=== PATIENT | male | born 1965 | race Caucasian/White ===

== ENCOUNTER 2016-09-23 20:53 | Inpatient (IN) | payer OTHER ==
[2016-09-23 21:37] LABS: Basophils # (A) 0.2 k/uL (0-0.2); Basophils % (A) 1 %; CH 31.8; CHCM 36.8; Eosinophils # (A) 0.3 k/uL (0-0.7); Eosinophils % (A) 3 %; HDW 2.63; Luc # (Auto) 0.16; Luc % (Auto) 2; Lymphocytes # (A) 2.6 k/uL (1.0-4.8); Lymphocytes % (A) 24 %; MCH 31.2 pg (25.0-35.0); MCV 86.8 fL (80.0-100.0); Mean Platelet Volume 7.1; Monocytes # (A) 0.8 k/uL (0-1.0); Monocytes % (A) 8 %; Neutrophils # (A) 6.9 k/uL (1.3-7.7); Neutrophils % (A) 63 %; RBC 4.49 m/uL (4.30-5.90); RDW 12.6 % (11.5-15.5); WBC (Perox) 11.62
[2016-09-23 21:53] LABS: ALT 39 U/L (21-72); AST 26 U/L (17-59); Alkaline Phosphatase 76 U/L (38-126); Anion Gap 11 mmol/L; Blood Urea Nitrogen 8 mg/dL (9-20); Calcium 8.9 mg/dL (8.4-10.2); Carbon Dioxide 25 mmol/L (22-30); Chloride 98 mmol/L (98-107); Glucose 118 mg/dL (74-99); Non-African American GFR(MDRD) >60 (>60 ml/min/1.73 sqM); Potassium 4.2 mmol/L (3.5-5.1); Sodium 134 mmol/L (137-145); Total Protein 6.6 g/dL (6.3-8.2)
[2016-09-23] MEDS ORDERED: NALOXONE 0.4 MG/ML 1 ML VIAL IV PRN (22:25)
[2016-09-23] MEDS ORDERED: ONDANSETRON 4 MG/2 ML VIAL IVP PRN (22:25)
[2016-09-23] MEDS ORDERED: TEMAZEPAM 15 MG CAP PO PRN (22:25)
--- NOTE | 2016-09-23 22:25 | ED ---
General Adult HPI - General Chief complaint: Abdominal Pain Stated complaint: ABD PAIN Time Seen by Provider: 09/23/16 20:55 Source: patient, EMS Mode of arrival: EMS Limitations: no limitations - History of Present Illness Initial comments: Patient presents to the [facility] with cellulitis of the anterior abdominal wall. He also has a tract involving a history of hernia repair. He was evaluated at another facility. They were concern for infection of the mesh. Patient has no fever or chills. He has no chest pain. He has pain over the inflamed area, however does not have belly pain otherwise. He has no blood in the stool. He has no black or tarry stool. He has taken no medication for this. - Related Data Home Medications Medication Instructions Recorded Confirmed Aspirin [Adult Low Dose Aspirin EC] 81 mg PO DAILY 09/23/16 09/23/16 Atorvastatin [Lipitor] 10 mg PO DAILY 09/23/16 09/23/16 Fexofenadine HCl [Katelin Allergy] 180 mg PO DAILY 09/23/16 09/23/16 Losartan-Hctz 50-12.5 mg [Hyzaar 1 tab PO DAILY 09/23/16 09/23/16 50-12.5] Sulfamethox-Tmp 800-160Mg [Bactrim 1 tab PO Q12HR 09/23/16 09/23/16 DS 800-160 mg] metFORMIN HCL [Glucophage] 500 mg PO DAILY 09/23/16 09/23/16 traMADol HCl [Ultram] 50 mg PO BID 09/23/16 09/23/16 Allergies Allergy/AdvReac Type Severity Reaction Status Date / Time No Known Allergies Allergy Verified 09/23/16 21:11 Review of Systems ROS Statement: Those systems with pertinent positive or pertinent negative responses have been documented in the HPI. ROS Other: All systems not noted in ROS Statement are negative. Past Medical History Past Medical History: Diabetes Mellitus, Hyperlipidemia, Hypertension Additional Past Medical History / Comment(s): chronic back pain History of Any Multi-Drug Resistant Organisms: None Reported Past Surgical History: Appendectomy, Cholecystectomy, Hernia Repair Past Psychological History: No Psychological Hx Reported Smoking Status: Never smoker Past Alcohol Use History: None Reported Past Drug Use History: None Reported General Exam Limitations: no limitations General appearance: alert, in no apparent distress Head exam: Present: atraumatic, normocephalic, normal inspection Eye exam: Present: normal appearance, PERRL, EOMI. Absent: scleral icterus, conjunctival injection, periorbital swelling ENT exam: Present: normal exam, mucous membranes moist Neck exam: Present: normal inspection. Absent: tenderness, meningismus, lymphadenopathy Respiratory exam: Present: normal lung sounds bilaterally. Absent: respiratory distress, wheezes, rales, rhonchi, stridor Cardiovascular Exam: Present: regular rate, normal rhythm, normal heart sounds. Absent: systolic murmur, diastolic murmur, rubs, gallop, clicks GI/Abdominal exam: Present: soft, normal bowel sounds. Absent: distended, tenderness, guarding, rebound, rigid Extremities exam: Present: normal inspection, full ROM, normal capillary refill. Absent: tenderness, pedal edema, joint swelling, calf tenderness Back exam: Present: normal inspection Neurological exam: Present: alert, oriented X3, CN II-XII intact Psychiatric exam: Present: normal affect, normal mood Skin exam: Present: warm, dry, other (Cellulitis of the anterior abdominal wall with purulent discharge). Absent: rash Course Vital Signs 09/23/16 20:54 Temperature 97.2 F L Pulse Rate 77 Respiratory 18 Rate Blood Pressure 120/71 O2 Sat by Pulse 98 Oximetry Medical Decision Making - Medical Decision Making Patient presents with cellulitis and abscess of the anterior abdominal wall. He has no white count. He is started on antibiotics. I have placed a consultation to surgery. He will be admitted to the hospital. - Lab Data Result diagrams: 09/23/16 21:24 09/23/16 21:24 Lab Results 09/23/16 09/23/16 Range/Units 21:24 21:24 WBC 11.0 H (3.8-10.6) k/uL RBC 4.49 (4.30-5.90) m/uL Hgb 14.0 (13.0-17.5) gm/dL Hct 39.0 (39.0-53.0) % MCV 86.8 (80.0-100.0) fL MCH 31.2 (25.0-35.0) pg MCHC 36.0 (31.0-37.0) g/dL RDW 12.6 (11.5-15.5) % Plt Count 266 (150-450) k/uL Neutrophils % 63 % Lymphocytes % 24 % Monocytes % 8 % Eosinophils % 3 % Basophils % 1 % Neutrophils # 6.9 (1.3-7.7) k/uL Lymphocytes # 2.6 (1.0-4.8) k/uL Monocytes # 0.8 (0-1.0) k/uL Eosinophils # 0.3 (0-0.7) k/uL Basophils # 0.2 (0-0.2) k/uL Sodium 134 L (137-145) mmol/L Potassium 4.2 (3.5-5.1) mmol/L Chloride 98 (98-107) mmol/L Carbon Dioxide 25 (22-30) mmol/L Anion Gap 11 mmol/L BUN 8 L (9-20) mg/dL Creatinine 0.70 (0.66-1.25) mg/dL Est GFR (MDRD) Af Amer >60 (>60 ml/min/1.73 sqM) Est GFR (MDRD) Non-Af >60 (>60 ml/min/1.73 sqM) Glucose 118 H (74-99) mg/dL Calcium 8.9 (8.4-10.2) mg/dL Total Bilirubin 1.0 (0.2-1.3) mg/dL AST 26 (17-59) U/L ALT 39 (21-72) U/L Alkaline Phosphatase 76 (38-126) U/L Total Protein 6.6 (6.3-8.2) g/dL Albumin 4.0 (3.5-5.0) g/dL Disposition Clinical Impression: Cellulitis Disposition: ADMITTED IP TO THIS HOSP Condition: Fair Time of Disposition: 22:24
[2016-09-23] MEDS: MORPHINE SULFATE 4 MG/ML SYRINGE IV PRN (23:58)
[2016-09-24] MEDS: MORPHINE SULFATE 4 MG/ML SYRINGE IV PRN ×2 (05:58→21:06)
[2016-09-24] MEDS: ASPIRIN 81 MG CHEW PO SCH (08:16)
[2016-09-24] MEDS: LOSARTAN-HCTZ 50-12.5 MG 1 EACH TAB PO SCH (08:16)
[2016-09-24] MEDS: metFORMIN 500 MG TAB PO SCH (08:16)
[2016-09-24] MEDS: ATORVASTATIN 10 MG TAB PO SCH (08:16)
[2016-09-24] MEDS ORDERED: FAMOTIDINE 20 MG TAB PO SCH (09:00)
[2016-09-24] MEDS ORDERED: IV VANCOMYCIN PER PHARMACY 1 EACH MISC MISCELLANE PRN ×3 (11:48→15:13)
--- NOTE | 2016-09-24 13:18 | P.GSCN ---
History of Present Illness Consult date: 09/24/16 Reason for Consult: Abdominal wall abscess, questionable abscess at prior left inguinal hernia repair site History of present illness: Patient is a 51-year-old white male with a history approximately 25 years ago of a left inguinal hernia repair. The patient states that several days ago he developed a swelling on his anterior abdominal wall. He had this in the past and this was treated with antibiotics with resolution. However this time he never really developed pain at the abdominal wall side but also in the left groin. He was seen at [place] for a CAT scan was performed which revealed an abscess on the anterior abdominal wall with extension down to the area of the left groin at the site of prior hernia repair. The patient denies fever or chills. The patient denies nausea or vomiting. The patient states he has been eating well. The patient denies any swelling in his left groin, although he does have pain at that site. Past surgical history: 1. Left inguinal hernia repair 2 2. Cholecystectomy 3. Appendectomy Past medical history: Hypertension Diabetes ALLERGIES: Negative Social history: Smoking: Negative Alcohol: Negative Marijuana: Negative Review of systems: HEENT negative Lungs: Negative Heart: Negative GI: Negative : Left inguinal hernia 2 Kidney stones Review of Systems - Constitutional Reports as per HPI - EENT Ears, nose, mouth and throat: Reports as per HPI - Cardiovascular Reports as per HPI - Respiratory Reports as per HPI - Gastrointestinal Reports as per HPI - Genitourinary Genitourinary Comment(s): History of kidney stones Reports as per HPI - Integumentary Reports as per HPI Past Medical History Past Medical History: Diabetes Mellitus, Hyperlipidemia, Hypertension Additional Past Medical History / Comment(s): chronic back pain History of Any Multi-Drug Resistant Organisms: None Reported Past Surgical History: Appendectomy, Cholecystectomy, Hernia Repair Past Anesthesia/Blood Transfusion Reactions: No Reported Reaction Past Psychological History: No Psychological Hx Reported Smoking Status: Never smoker Past Alcohol Use History: None Reported Past Drug Use History: None Reported - Past Family History Mother Family Medical History: Cancer Medications and Allergies Home Medications Medication Instructions Recorded Confirmed Type Aspirin [Adult Low Dose Aspirin EC] 81 mg PO DAILY 09/23/16 09/23/16 History Atorvastatin [Lipitor] 10 mg PO DAILY 09/23/16 09/23/16 History Fexofenadine HCl [Katelin Allergy] 180 mg PO DAILY 09/23/16 09/23/16 History Losartan-Hctz 50-12.5 mg [Hyzaar 1 tab PO DAILY 09/23/16 09/23/16 History 50-12.5] Sulfamethox-Tmp 800-160Mg [Bactrim 1 tab PO Q12HR 09/23/16 09/23/16 History DS 800-160 mg] metFORMIN HCL [Glucophage] 500 mg PO DAILY 09/23/16 09/23/16 History traMADol HCl [Ultram] 50 mg PO BID 09/23/16 09/23/16 History Allergies Allergy/AdvReac Type Severity Reaction Status Date / Time No Known Allergies Allergy Verified 09/23/16 21:11 Surgical - Exam Vital Signs Temp Pulse Resp BP Pulse Ox 97.2 F L 77 18 120/71 98 09/23/16 20:54 09/23/16 20:54 09/23/16 20:54 09/23/16 20:54 09/23/16 20:54 - General well developed, moderate distress - Eyes normal ocular movement - ENT Edentulous anterior teeth normal pinna, normal nares - Neck no masses, trachea midline, no lymphadectomy, no venous distension - Respiratory normal expansion, normal respiratory effort, clear to auscultation - Cardiovascular Rhythm: regular Heart Sounds: normal: S1, S2 - Abdomen Abscess left lower quadrant approximately 4 cm x 4 cm Incision prior left inguinal hernia repair tender to palpation No evidence of any groin hernias appreciated Abdomen: soft Hernia: none - Genitourinary testicles present - Integumentary Left lower quadrant anterior abdominal wall positive abscess Well-healed scar from prior left inguinal hernia repair approximately 25 years ago with some tenderness at this site - Psychiatric oriented to time, oriented to person, oriented to place, speech is normal Results Computed tomography scan from some dusky reviewed with radiologist here Anterior abdominal wall abscess Fluid collection around questionable mesh in the left groin area which may be contiguous with the abscess on the intra-abdominal wall No evidence of any bowel in the abscessed areas and no evidence of recurrence of the hernia - Labs 09/23/16 21:24 09/23/16 21:24 - Imaging CT scan - abdomen: report reviewed, image reviewed CT scan - pelvis: report reviewed, image reviewed (CT findings revealing intra- abdominal wall abscess as well as possible extension of abscess to the area of the left groin prior hernia repair) Assessment and Plan Plan: Impression/plan: 1. 51-year-old gentleman with a intra-abdominal wall abscess possible abscess extending to the area of a prior hernia repair 2. Diabetes 3. Hypertension Plan: 1. Incision and drainage of the area of abscess possible removal of prior mesh 2. Will most likely require debridement with open wound and recurrent dressing changes; if it is necessary to remove the mesh patient may need to have a repeat hernia repair after the infection is resolved
[2016-09-24] MEDS ORDERED: HEPARIN SODIUM,PORCINE 5,000 UNIT/ML 1 ML VIAL SQ ONE (13:30)
[2016-09-24 13:49] LABS: Glucose,Whole Blood 93 mg/dL (75-99)
[2016-09-24] MEDS ORDERED: DEXAMETHASONE SOD PHOSPHATE 10 MG/ML 1 ML VIAL IV ONE (14:02)
[2016-09-24] MEDS ORDERED: ONDANSETRON 4 MG/2 ML VIAL IVP ONE (14:02)
[2016-09-24] MEDS ORDERED: MIDAZOLAM 2 MG/2 ML VIAL ONE (14:10)
[2016-09-24] MEDS ORDERED: LIDOCAINE 1% INJ 10MG/ML (20 ML MDV) ONE (14:10)
[2016-09-24] MEDS ORDERED: PROPOFOL 10 MG/ML 20 ML VIAL IV ONE (14:10)
[2016-09-24] MEDS ORDERED: SUCCINYLCHOLINE CHLORIDE 100 MG/5 ML SYR IV ONE (14:10)
[2016-09-24] MEDS ORDERED: ePHEDrine 50 MG/ML 1 ML AMP ONE (14:10)
[2016-09-24] MEDS ORDERED: fentaNYL (PF) 50 MCG/ML 2 ML AMP ONE (14:10)
[2016-09-24] MEDS ORDERED: HYDROmorphone (PF) 1 MG/ML ONE (14:10)
[2016-09-24] MEDS: LACTATED RINGERS 1,000 ML IV SCH ×2 (14:10→14:14)
[2016-09-24] MEDS ORDERED: FAMOTIDINE 20 MG/2 ML VIAL IV PRN (14:11)
--- NOTE | 2016-09-24 14:35 | P.HPIM ---
History of Present Illness H&P Date: 09/24/16 Chief Complaint: Abdominal wound infection This is a 51-year-old male. His primary care physician is Dr. Joe Pepe. He has a past medical history of diabetes mellitus type 2, hyperlipidemia, hypertension, chronic back pain, tobacco chewing. He denies ever being told that he had MRSA. He gives history that he had a left inguinal hernia repair done 15-20 years ago by a physician in [place]. One year later he had to have this redone also by another physician in [place]. He states he has had an open wound to the left groin for the past year that has been draining bloody liquid and soaks his underwear. He states that since Thursday there was a ball in the area and has started popping out and getting bigger and bigger and worsening with increasing pain. He saw Dr. Dave on September 19 and was placed on Bactrim. He states he tried to work on Thursday which she did that on Thursday the pain was so severe he was not able to work. He went to [facility] underwent a CAT scan of the abdomen that revealed an abscess on the anterior abdominal wall with extension down to the area of the left groin at the site of the prior hernia repair. Wound and blood cultures were obtained and sent to [facility]. Patient was transferred to [facility] as a direct admission. He has been started on vancomycin and Zosyn has been added. Consult in place with infectious disease, Dr. Hernandez, and general surgeon, Dr. John Cheema. Review of Systems All systems: negative Constitutional: Denies chills, Denies fever Eyes: denies blurred vision, denies pain Ears, nose, mouth and throat: Denies headache, Denies sore throat Cardiovascular: Denies chest pain, Denies shortness of breath Respiratory: Denies cough Gastrointestinal: Reports abdominal pain, Denies diarrhea, Denies nausea, Denies vomiting Musculoskeletal: Denies myalgias Integumentary: Reports wounds, Denies pruritus, Denies rash Neurological: Denies numbness, Denies weakness Psychiatric: Denies anxiety, Denies depression Endocrine: Denies fatigue, Denies weight change Past Medical History Past Medical History: Diabetes Mellitus, Hyperlipidemia, Hypertension Additional Past Medical History / Comment(s): chronic back pain History of Any Multi-Drug Resistant Organisms: None Reported Past Surgical History: Appendectomy, Cholecystectomy, Hernia Repair Additional Past Surgical History / Comment(s): Left inguinal hernia repair done 15-20 years ago followed one year later by repair of the same area, colonoscopy 10-12 years ago. Past Anesthesia/Blood Transfusion Reactions: No Reported Reaction Past Psychological History: No Psychological Hx Reported Smoking Status: Never smoker Past Alcohol Use History: None Reported Additional Past Alcohol Use History / Comment(s): Patient is a lifelong nonsmoker. He denies any medical marijuana, marijuana, street drug use. He does chew tobacco. He denies any alcohol use. He lives at home with his and has 2 dogs in the home. He denies any service. 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 Past Drug Use History: None Reported - Past Family History Mother Family Medical History: Cancer Additional Family Medical History / Comment(s): Mother at age 32 from ovarian cancer. Father Additional Family Medical History / Comment(s): Father at age 73 from stomach cancer. Sister(s) Additional Family Medical History / Comment(s): He has 5 sisters and 2 brothers with no major medical problems. He has 2 children, one boy and one girl with no major medical problems. Medications and Allergies Home Medications Medication Instructions Recorded Confirmed Type Aspirin [Adult Low Dose Aspirin EC] 81 mg PO DAILY 09/23/16 09/23/16 History Atorvastatin [Lipitor] 10 mg PO DAILY 09/23/16 09/23/16 History Fexofenadine HCl [Katelin Allergy] 180 mg PO DAILY 09/23/16 09/23/16 History Losartan-Hctz 50-12.5 mg [Hyzaar 1 tab PO DAILY 09/23/16 09/23/16 History 50-12.5] Sulfamethox-Tmp 800-160Mg [Bactrim 1 tab PO Q12HR 09/23/16 09/23/16 History DS 800-160 mg] metFORMIN HCL [Glucophage] 500 mg PO DAILY 09/23/16 09/23/16 History traMADol HCl [Ultram] 50 mg PO BID 09/23/16 09/23/16 History Allergies Allergy/AdvReac Type Severity Reaction Status Date / Time No Known Allergies Allergy Verified 09/24/16 13:51 Physical Exam Vitals: Vital Signs Temp Pulse Pulse Resp BP BP Pulse Ox 09/24/16 09:36 71 18 09/24/16 08:00 71 18 09/24/16 07:00 97.8 F 71 18 95 09/23/16 23:40 97.7 F 66 16 112/68 97 09/23/16 22:52 98.0 F 68 18 120/67 96 Intake and Output 09/23/16 09/24/16 09/24/16 22:59 06:59 14:59 Output Total 400 Balance -400 Output: Urine 400 Other: Voiding Method Toilet # Voids 1 Gen: This is a 31-year-old male. He is laying in bed and appears to be in no acute distress. HEENT: Head is atraumatic, normocephalic. Pupils equal, round. Sclerae is anicteric. NECK: Supple. No JVD. No lymphadenopathy. No thyromegaly. LUNGS: Clear to auscultation. No wheezes or rhonchi. No intercostal retractions. HEART: Regular rate and rhythm. No murmur. ABDOMEN: Soft. Bowel sounds are present. Abscess to the left lower quadrant approximately 4 cm x 4 cm. Incision to the left inguinal hernia repair noted. Left lower quadrant tender to touch.. EXTREMITIES: No pedal edema. No calf tenderness. NEUROLOGICAL: Patient is awake, alert and oriented x3. Cranial nerves 2 through 12 are grossly intact. Results CBC & Chem 7: 09/23/16 21:24 09/23/16 21:24 Thrombosis Risk Factor Assmnt - DVT/VTE Prophylaxis DVT/VTE Prophylaxis: Pharmacologic Prophylaxis ordered - Choose All That Apply Any of the Below Risk Factors Present?: Yes Each Factor Represents 1 point: Age 41-60 years, Minor surgery planned, Obesity (BMI >25) Other Risk Factors: No Thrombosis Risk Factor Assessment Total Risk Factor Score: 3 Thrombosis Risk Factor Assessment Level: Moderate Risk Assessment and Plan Plan: 1. Intra-abdominal wall abscess possibly extending to the posterior hernia repair, failed outpatient treatment with Bactrim. Patient has been started on vancomycin and Zosyn. Consult with Dr. John Cheema for debridement. Consult with Dr. Hernandez from infectious disease. Continue morphine for pain control and Zofran as needed for nausea. Incentive spirometry to reduce incidence of atelectasis and hospital-acquired pneumonia. 2. Diabetes mellitus type 2. Patient has been maintained on metformin 500 mg daily. Continue Humalog scale before meals and at bedtime. 3. Hyperlipidemia. Continue Lipitor 10 mg daily. 4. Hypertension. Continue Hyzaar 50/12.5. one daily. 5. Chronic back pain. Patient has been on tramadol 50 mg twice daily. 6. Gastric intestinal prophylaxis. Continue Pepcid 20 mg twice daily. 7. DVT prophylaxis. Heparin 5000 units subcu 3 times daily. Patient will be admitted to the hospital for a minimum of 3 night stay. Discharge plan: Return home Impression and plan of care have been directed as dictated by the signing physician. Chantel Camarillo nurse practitioner acting as scribe for signing physician. Cc: Dr. Joe Pepe Time with Patient: Greater than 30
[2016-09-24] MEDS: PIPERACILLIN-TAZOBACTAM 3.375 GM in DEXTROSE/WATER 1 50ML.BAG IVPB SCH ×2 (14:49→17:34)
[2016-09-24] MEDS: INSULIN LISPRO (humaLOG) 300 UNIT/3 ML VIAL SQ SCH ×3 (14:59→22:27)
[2016-09-24] MEDS: VANCOMYCIN 1,750 MG in SODIUM CHLORIDE 0.9% 250 ML IVPB SCH ×3 (15:06→20:52)
[2016-09-24] MEDS ORDERED: HYDROmorphone 1 MG/ML 1 ML SYRINGE IV PRN (15:09)
[2016-09-24] MEDS ORDERED: NALOXONE 0.4 MG/ML 1 ML VIAL IV PRN (15:09)
[2016-09-24] MEDS ORDERED: ONDANSETRON 4 MG/2 ML VIAL IVP PRN (15:09)
--- NOTE | 2016-09-24 15:09 | P.OP ---
Date of Procedure: 09/24/16 Preoperative Diagnosis: Abdominal wall infection with extension to the area of prior left inguinal hernia repair and satellite lesion of abscess lateral to this Postoperative Diagnosis: Same Procedure(s) Performed: Incision and drainage of intra-abdominal wall abscess, incision and drainage of lateral abdominal wall abscess, incision and drainage of groin abscess area with removal of extruded mesh Implants: Anesthesia: RUBI Surgeon: Gila Lai Estimated Blood Loss (ml): 20 Pathology: other (Cultures obtained, wall of abscess cavity, extruded mesh) Condition: stable Disposition: PACU Indications for Procedure: Infected and anterior abdominal wall, infected mesh, Operative Findings: Intra-abdominal wall abscess, extruded and infected mesh and left groin 25 years status post left groin hernia repair, left lateral abdominal wall abscess Description of Procedure: Patient was taken to the operating room and following induction of general anesthesia the left abdominal wall as well as area of a prior hernia repair approximately 25 years ago was prepped and draped in a sterile fashion. Incision and drainage was performed with an 8 x 4 cm abscess on the anterior abdominal wall. This was contiguous with the area of the hernia repair and an incision was made over the prior hernia repair. This was carried down to the inguinal canal and there was noted to be mesh which was extruded and bunched into the area of the incision. The mesh was 7 x 4 cm in size. This was dissected free and removed. There was no evidence of any recurrent hernia. This area was approximately 8 cm in length. Following this an area lateral to this site appeared to have a pustule and I&D was performed of this area. Following this all areas were irrigated using approximately 3 L of irrigation. After assured that hemostasis was attained the wounds were packed open with iodoform gauze. Patient tolerated procedure in stable condition.
[2016-09-24 15:19] LABS: Hemoglobin A1C 5.9 % (4.2-6.1)
[2016-09-24] MEDS: HYDROmorphone 1 MG/ML 1 ML SYRINGE IVP ONE ×5 (15:33→16:20)
[2016-09-24 15:35] LABS: Glucose,Whole Blood 129 mg/dL (75-99)
[2016-09-24 17:25] LABS: Glucose,Whole Blood 117 mg/dL (75-99)
[2016-09-24] MEDS: HEPARIN SODIUM,PORCINE 5,000 UNIT/ML 1 ML VIAL SQ SCH (17:34)
[2016-09-24] MEDS: SODIUM CHLORIDE 0.9% 1,000 ML IV SCH (17:34)
[2016-09-24] MEDS ORDERED: VANCOMYCIN 1,750 MG in SODIUM CHLORIDE 0.9% 250 ML IVPB SCH (18:00)
[2016-09-24] MEDS: FAMOTIDINE 20 MG TAB PO SCH (20:52)
[2016-09-24 21:34] LABS: Glucose,Whole Blood 141 mg/dL (75-99)
[2016-09-25] MEDS: PIPERACILLIN-TAZOBACTAM 3.375 GM in DEXTROSE/WATER 1 50ML.BAG IVPB SCH ×3 (00:41→17:31)
[2016-09-25] MEDS: SODIUM CHLORIDE 0.9% 1,000 ML IV SCH ×3 (00:42→21:41)
[2016-09-25] MEDS: HEPARIN SODIUM,PORCINE 5,000 UNIT/ML 1 ML VIAL SQ SCH ×3 (00:42→17:31)
[2016-09-25] MEDS: MORPHINE SULFATE 4 MG/ML SYRINGE IV PRN ×4 (03:58→19:02)
[2016-09-25] MEDS: VANCOMYCIN 1,750 MG in SODIUM CHLORIDE 0.9% 250 ML IVPB SCH ×3 (04:50→21:40)
[2016-09-25 07:38] LABS: Glucose,Whole Blood 112 mg/dL (75-99)
[2016-09-25] MEDS: INSULIN LISPRO (humaLOG) 300 UNIT/3 ML VIAL SQ SCH ×4 (08:22→21:41)
[2016-09-25] MEDS: metFORMIN 500 MG TAB PO SCH (08:23)
[2016-09-25] MEDS: ATORVASTATIN 10 MG TAB PO SCH (08:24)
[2016-09-25] MEDS: FAMOTIDINE 20 MG TAB PO SCH ×2 (08:24→21:36)
[2016-09-25] MEDS: ASPIRIN 81 MG CHEW PO SCH (08:24)
[2016-09-25] MEDS: LOSARTAN-HCTZ 50-12.5 MG 1 EACH TAB PO SCH (08:24)
[2016-09-25 09:17] LABS: Basophils # (A) 0.1 k/uL (0-0.2); Basophils % (A) 1 %; CH 31.5; CHCM 35.2; Eosinophils # (A) 0.2 k/uL (0-0.7); Eosinophils % (A) 2 %; HCT 39.4 % (39.0-53.0); HDW 2.52; HGB 13.3 gm/dL (13.0-17.5); Luc % (Auto) 2; Lymphocytes # (A) 2.1 k/uL (1.0-4.8); Lymphocytes % (A) 19 %; MCH 30.3 pg (25.0-35.0); MCHC 33.7 g/dL (31.0-37.0); Mean Platelet Volume 6.3; Monocytes # (A) 0.8 k/uL (0-1.0); Monocytes % (A) 7 %; Neutrophils # (A) 7.8 k/uL (1.3-7.7); Neutrophils % (A) 69 %; RBC 4.38 m/uL (4.30-5.90); RDW 12.4 % (11.5-15.5); WBC 11.2 k/uL (3.8-10.6); WBC (Perox) 11.51
[2016-09-25 09:36] LABS: Anion Gap 13 mmol/L; Blood Urea Nitrogen 10 mg/dL (9-20); Calcium 8.9 mg/dL (8.4-10.2); Carbon Dioxide 27 mmol/L (22-30); Chloride 98 mmol/L (98-107); Glucose 129 mg/dL (74-99); Non-African American GFR(MDRD) >60 (>60 ml/min/1.73 sqM); Potassium 4.2 mmol/L (3.5-5.1); Sodium 138 mmol/L (137-145)
--- NOTE | 2016-09-25 10:23 | CONS ---
DATE OF CONSULTATION: DATE OF SERVICE: 09/24/2016 REASON FOR CONSULTATION: Abdominal wall abscess. HISTORY OF PRESENT ILLNESS: The patient is a 51-year-old male with a past medical history significant for left inguinal hernia repair about 20 years ago, later the patient did have recurrence of hernia and had to be redone. Surgery was done at [place]. Patient now seems to have problem with some drainage from the inguinal area for the last couple of months. The area becoming more swollen and red and painful, describing the pain to be throbbing 6 to 7 out of 10 and no radiation and some chills for which patient has been evaluated by his primary care physician. The patient has been started on Bactrim DS. However, the patient did not have any improvement. area became more painful and swollen and increased in size. Subsequently, the patient went to [facility] in [place] where the patient did have a CT scan of abdomen and pelvis, there was evidence of abscess in the anterior abdominal wall with extension down to the left groin area. The patient did receive a dose of vancomycin and Zosyn and subsequently has been transferred to [facility] for further evaluation. Patient had been evaluated by Surgery. Has been taken to the OR for evaluation, where he did have drainage of the abscess and the extruded mesh has been removed. ID was consulted for recommendation regarding antibiotic therapy. REVIEW OF SYSTEMS: CONSTITUTIONAL: Positive for weakness, but no high-grade fever. EYES: No complaint. ENT: No complaint. RESPIRATORY: No complaint. CARDIOVASCULAR: No complaint. GENITOURINARY: No complaint. GASTROINTESTINAL: As per HPI. MUSCULOSKELETAL: No complaint. INTEGUMENTARY: As per HPI. PSYCHOLOGIC: No complaint. ENDOCRINE: No complaint. NEUROLOGIC: No complaint. PAST MEDICAL HISTORY: Hypertension, hyperlipidemia, diabetes mellitus, chronic back pain. PAST SURGICAL HISTORY: Appendectomy, cholecystectomy, and inguinal hernia repair, left 20 years ago. SOCIAL HISTORY: No history of smoking, drinking, or any drug use. FAMILY HISTORY: Mother with history of ovarian cancer. Father from stomach cancer, age of 73. ALLERGIES: No known drug allergies. Medications currently include the patient is on [place], aspirin, Lipitor, Pepcid, Hyzaar, heparin, Dilaudid, lactated Ringer, Glucophage, Narcan, Zofran, piperacillin tazobactam, Restoril. On examination, blood pressure is 118/67 with a pulse of 72, temperature 97.4. He is 97% on 2 L nasal cannula. General description is a middle age male, lying in bed in no distress. HEENT examination shows no pallor or scleral icterus. Oral mucous membranes dry. NECK: Trachea central, no thyromegaly. LUNGS: Unlabored breathing. Clear to auscultation anteriorly. HEART: S1, S2. Regular rate and rhythm. ABDOMEN: Soft. He did have a painful lump in his left groin area. No drainage was noticed. EXTREMITIES: No edema of feet. SKIN EXAMINATION: No rash or mass palpable. NEUROLOGICAL: The patient is awake, alert, oriented x3. Mood and affect normal. LABS: Hemoglobin is 14, white count 11.0, BUN of 8, creatinine 0.70. Electrolytes have been normal. Liver enzymes are normal. DIAGNOSTIC IMPRESSION AND PLAN: Patient with left abdominal wall abscess likely infected mesh and likely from Gram-positive skin montrell. No involvement of the gut making it to less likely gram negative infection. PLAN: 1. Will request deep cultures at the time of surgery both aerobic and anaerobic. 2. Patient was started on vancomycin pharmacy to dose and continue Zosyn. 3. Will follow up on his clinical condition and cultures to further adjust medication if needed. Thank you for this consultation. Will follow this patient along with you. EMIGDIO
--- NOTE | 2016-09-25 10:36 | P.PN ---
Subjective Patient is postop day #1 from incision and drainage of infected abdominal wall abscess and removal of infected mesh in the left groin. The patient is somewhat anxious and expressing concerns that he will not be able to care for this himself at home. The patient is tolerating this diet without difficulty but hesitant to ambulate secondary to discomfort. Objective - Vital Signs Vital signs: Vital Signs Temp 96.6 F L 09/25/16 07:00 Pulse 71 09/25/16 07:00 Resp 16 09/25/16 07:00 BP 118/71 09/25/16 07:00 Pulse Ox 94 L 09/25/16 07:00 Intake & Output 09/24/16 09/25/16 09/25/16 18:59 06:59 18:59 Intake Total 1000 Output Total 20 750 Balance 980 -750 Intake: IV 1000 Output: Urine 750 Estimated Blood Loss 20 Other: Voiding Method Toilet # Voids 1 - Constitutional General appearance: Present: average body habitus, obese - Respiratory Respiratory: bilateral: CTA - Cardiovascular Rhythm: regular Heart sounds: normal: S1, S2 - Gastrointestinal Gastrointestinal Comment(s): Packing is changed at all wound sites Wounds appear to be clean with no purulent drainage General gastrointestinal: Present: normal bowel sounds - Psychiatric Psychiatric Comment(s): Patient is anxious and somewhat noncooperative - Labs CBC & Chem 7: 09/25/16 08:20 09/25/16 08:20 Labs: Abnormal Lab Results - Last 24 Hours (Table) 09/24/16 09/24/16 09/24/16 Range/Units 15:33 17:22 21:14 WBC (3.8-10.6) k/uL Neutrophils # (1.3-7.7) k/uL Glucose (74-99) mg/dL POC Glucose (mg/dL) 129 H 117 H 141 H (75-99) mg/dL 09/25/16 09/25/16 09/25/16 Range/Units 07:28 08:20 08:20 WBC 11.2 H (3.8-10.6) k/uL Neutrophils # 7.8 H (1.3-7.7) k/uL Glucose 129 H (74-99) mg/dL POC Glucose (mg/dL) 112 H (75-99) mg/dL Microbiology - Last 24 Hours (Table) 09/24/16 15:06 Gram Stain - Preliminary Abdomen Wound Culture - Preliminary 09/24/16 15:06 Anaerobic Culture - Preliminary Abdomen Assessment and Plan Plan: Impression/plan: 1. 51-year-old gentleman with a intra-abdominal wall abscess possible abscess extending to the area of a prior hernia repair/ postop day #1 from I&D of abscess and removal of infected mesh 2. Diabetes 3. Hypertension 4. Wound cultures pending Gram stain many gram-positive cocci in clusters Plan: 1. Continue IV antibiotic therapy 2. Continue wound care
[2016-09-25 11:46] LABS: Glucose,Whole Blood 127 mg/dL (75-99)
[2016-09-25] MEDS: LACTATED RINGERS 1,000 ML IV SCH (14:19)
[2016-09-25 17:16] LABS: Glucose,Whole Blood 125 mg/dL (75-99)
--- NOTE | 2016-09-25 18:59 | P.PN ---
Subjective Principal diagnosis: Abscess left groin with infected left inguinal hernia mesh This is a 51-year-old male. His primary care physician is Dr. Joe Pepe. He has a past medical history of diabetes mellitus type 2, hyperlipidemia, hypertension, chronic back pain, tobacco chewing. He denies ever being told that he had MRSA. He gives history that he had a left inguinal hernia repair done 15-20 years ago by a physician in [place]. One year later he had to have this redone also by another physician in [place]. He states he has had an open wound to the left groin for the past year that has been draining bloody liquid and soaks his underwear. He states that since Thursday there was a ball in the area and has started popping out and getting bigger and bigger and worsening with increasing pain. He saw Dr. Dave on September 19 and was placed on Bactrim. He states he tried to work on Thursday which she did that on Thursday the pain was so severe he was not able to work. He went to [facility] underwent a CAT scan of the abdomen that revealed an abscess on the anterior abdominal wall with extension down to the area of the left groin at the site of the prior hernia repair. Wound and blood cultures were obtained and sent to [facility] lab. Patient was transferred to [facility] as a direct admission. He has been started on vancomycin and Zosyn has been added. Consult in place with infectious disease, Dr. Hernandez, and general surgeon, Dr. John Cheema 09/25 patient underwent on 1227 and incision and drainage of intra-abdominal wall abscess, incision and drainage of lateral abdominal wall abscess, incision and drainage of left groin abscess with removal of extruded mesh. Patient is doing better postoperative pain is controlled no nausea vomiting patient was requested to ambulate and use his incentive spirometry Objective - Vital Signs Vital signs: Vital Signs Temp 96.6 F L 09/25/16 07:00 Pulse 71 09/25/16 07:00 Resp 16 09/25/16 07:00 BP 118/71 09/25/16 07:00 Pulse Ox 94 L 09/25/16 07:00 Intake & Output 09/24/16 09/25/16 09/25/16 18:59 06:59 18:59 Intake Total 1000 Output Total 20 750 Balance 980 -750 Intake: IV 1000 Output: Urine 750 Estimated Blood Loss 20 Other: Voiding Method Toilet # Voids 1 - Constitutional General appearance: Present: cooperative, no acute distress - EENT Eyes: Present: anicteric sclerae, EOMI, PERRLA, dentition normal, normal appearance. Absent: abnormal pupil, disc margins sharp, edentulous, fundus normal, photophobia, poor dentition, ptosis, scleral icterus ENT: Present: hearing grossly normal, NA/AT, normal oropharynx. Absent: hard of hearing, other, pharyngeal erythema, thrush, tonsillar exudates, tonsillar swelling - Neck Neck: Present: normal ROM. Absent: lymphadenopathy, other, rigidity, stridor, thyromegaly - Respiratory Respiratory: bilateral: CTA, negative: diminished, dullness, rales, rhonchi, wheezing - Cardiovascular Rhythm: regular Heart sounds: normal: S1, S2 Abnormal Heart Sounds: Absent: systolic murmur, diastolic murmur, rub, S3 Gallop , S4 Gallop, click, other - Gastrointestinal General gastrointestinal: Present: soft - Integumentary Integumentary: Present: normal, normal turgor - Neurologic Neurologic: Present: CNII-XII intact - Musculoskeletal Musculoskeletal: Present: strength equal bilaterally - Psychiatric Psychiatric: Present: A&O x's 3, intact judgment & insight - Labs CBC & Chem 7: 09/25/16 08:20 09/25/16 08:20 Labs: Abnormal Lab Results - Last 24 Hours (Table) 09/24/16 09/24/16 09/24/16 Range/Units 15:33 17:22 21:14 WBC (3.8-10.6) k/uL Neutrophils # (1.3-7.7) k/uL Glucose (74-99) mg/dL POC Glucose (mg/dL) 129 H 117 H 141 H (75-99) mg/dL 09/25/16 09/25/16 09/25/16 Range/Units 07:28 08:20 08:20 WBC 11.2 H (3.8-10.6) k/uL Neutrophils # 7.8 H (1.3-7.7) k/uL Glucose 129 H (74-99) mg/dL POC Glucose (mg/dL) 112 H (75-99) mg/dL 09/25/16 Range/Units 11:42 WBC (3.8-10.6) k/uL Neutrophils # (1.3-7.7) k/uL Glucose (74-99) mg/dL POC Glucose (mg/dL) 127 H (75-99) mg/dL Microbiology - Last 24 Hours (Table) 09/24/16 15:06 Gram Stain - Preliminary Abdomen Wound Culture - Preliminary 09/24/16 15:06 Anaerobic Culture - Preliminary Abdomen Assessment and Plan Plan: 1. Intra-abdominal wall abscess possibly extending to the posterior hernia repair, failed outpatient treatment with Bactrim. Patient has been started on vancomycin and Zosyn. Consult with Dr. John Cheema for debridement patient underwent on 09/24/2016, removal off the infected mesh and I&D on the intra- abdominal wall abscess, left groin abscess. Consult with Dr. Hernandez from infectious disease Continue an IV antibiotics Zosyn and vancomycin intraoperative cultures were obtained. Continue morphine for pain control and Zofran as needed for nausea. Incentive spirometry to reduce incidence of atelectasis and hospital-acquired pneumonia. 2. Diabetes mellitus type 2. Patient has been maintained on metformin 500 mg daily. Continue Humalog scale before meals and at bedtime. 3. Hyperlipidemia. Continue Lipitor 10 mg daily. 4. Hypertension. Continue Hyzaar 50/12.5. one daily. 5. Chronic back pain. Patient has been on tramadol 50 mg twice daily. 6. Gastric intestinal prophylaxis. Continue Pepcid 20 mg twice daily. 7. DVT prophylaxis. Heparin 5000 units subcu 3 times daily. Patient will be admitted to the hospital for a minimum of 3 night stay. Discharge plan: Return home Time with Patient: Greater than 30
[2016-09-25 21:42] LABS: Glucose,Whole Blood 126 mg/dL (75-99)
[2016-09-26] MEDS: PIPERACILLIN-TAZOBACTAM 3.375 GM in DEXTROSE/WATER 1 50ML.BAG IVPB SCH ×3 (00:14→16:15)
[2016-09-26] MEDS: HEPARIN SODIUM,PORCINE 5,000 UNIT/ML 1 ML VIAL SQ SCH ×4 (00:14→23:06)
[2016-09-26] MEDS: MORPHINE SULFATE 4 MG/ML SYRINGE IV PRN ×3 (03:33→16:15)
[2016-09-26] MEDS: VANCOMYCIN 1,750 MG in SODIUM CHLORIDE 0.9% 250 ML IVPB SCH ×3 (05:04→20:24)
[2016-09-26 07:40] LABS: Glucose,Whole Blood 108 mg/dL (75-99)
[2016-09-26] MEDS: INSULIN LISPRO (humaLOG) 300 UNIT/3 ML VIAL SQ SCH ×4 (08:51→21:19)
--- NOTE | 2016-09-26 08:51 | P.PN ---
Subjective Patient is postop day #2 from incision and drainage of infected abdominal wall abscess and removal of infected mesh in the left groin. The patient is less anxious today. He is tolerating diet without difficulty. He is ambulating better today. His microbiology is presumptive MRSA. Objective - Vital Signs Vital signs: Vital Signs Temp 97 F L 09/26/16 07:00 Pulse 66 09/26/16 07:00 Resp 18 09/26/16 07:00 BP 107/64 09/26/16 07:00 Pulse Ox 94 L 09/26/16 07:00 Intake & Output 09/25/16 09/26/16 09/26/16 18:59 06:59 18:59 Intake Total 300 60 Output Total 665 Balance 300 -605 Intake: IV 300 Piperacillin-Tazobactam 3 50 .375 gm In Dextrose/Water 1 50ml.bag @ 12.5 mls/hr IVPB Q8HR [facility] Rx#: [id number] Vancomycin 1,750 mg In 250 Sodium Chloride 0.9% 250 ml @ 125 mls/hr IVPB Q8H [facility] Rx#:[id number] Oral 60 Output: Urine 665 Other: Voiding Method Urinal - Constitutional General appearance: Present: obese - Respiratory Respiratory: bilateral: CTA - Cardiovascular Rhythm: regular - Gastrointestinal General gastrointestinal: Present: normal bowel sounds, soft - Integumentary Integumentary Comment(s): Packing changed Incision and drainage sites clean and dry - Psychiatric Psychiatric: Present: A&O x's 3, appropriate affect, intact judgment & insight - Labs CBC & Chem 7: 09/25/16 08:20 09/25/16 08:20 Labs: Abnormal Lab Results - Last 24 Hours (Table) 09/25/16 09/25/16 09/25/16 Range/Units 08:20 08:20 11:42 WBC 11.2 H (3.8-10.6) k/uL Neutrophils # 7.8 H (1.3-7.7) k/uL Glucose 129 H (74-99) mg/dL POC Glucose (mg/dL) 127 H (75-99) mg/dL 09/25/16 09/25/16 09/26/16 Range/Units 17:14 21:39 07:21 WBC (3.8-10.6) k/uL Neutrophils # (1.3-7.7) k/uL Glucose (74-99) mg/dL POC Glucose (mg/dL) 125 H 126 H 108 H (75-99) mg/dL Microbiology - Last 24 Hours (Table) 09/24/16 15:06 Gram Stain - Preliminary Abdomen Wound Culture - Preliminary Presumptive MRSA Assessment and Plan Plan: Impression/plan: 1. 51-year-old gentleman with a intra-abdominal wall abscess possible abscess extending to the area of a prior hernia repair/ postop day #2 from I&D of abscess and removal of infected mesh 2. Diabetes 3. Hypertension 4. Microbiology presumptive MRSA Plan: 1. Continue IV antibiotic therapy 2. Continue wound care 3. Antibiotic therapy as per infectious disease 4. Change packing daily 5. We'll follow as needed
[2016-09-26] MEDS: SODIUM CHLORIDE 0.9% 1,000 ML IV SCH ×2 (08:53→17:28)
[2016-09-26] MEDS: ATORVASTATIN 10 MG TAB PO SCH (08:53)
[2016-09-26] MEDS: metFORMIN 500 MG TAB PO SCH (08:53)
[2016-09-26] MEDS: ASPIRIN 81 MG CHEW PO SCH (08:53)
[2016-09-26] MEDS: FAMOTIDINE 20 MG TAB PO SCH ×2 (08:53→20:24)
[2016-09-26] MEDS: LOSARTAN-HCTZ 50-12.5 MG 1 EACH TAB PO SCH (09:14)
--- NOTE | 2016-09-26 09:59 | PN ---
DATE OF SERVICE: 09/25/2016 Reason for follow-up: Abdominal abscess and infected mesh. INTERVAL HISTORY: The patient is afebrile. The patient is status post surgical drainage of the abscess and removal of the mesh. The patient tolerated the procedure. Still having some pain in the lower abdomen area. The patient denies any chest pain, shortness of breath, cough, nausea or vomiting. On examination, blood pressure is 122/66 with a pulse of 66, temperature 97.6, he is 95% on room air. General description is a middle-age male lying in bed in no distress. RESPIRATORY SYSTEM: Unlabored breathing. Clear to auscultation anteriorly. HEART: S1, S2 regular rate and rhythm. Abdomen soft. Wound is currently packed. LABS: Hemoglobin is 13.3, white count 11.2 with a BUN of 10, creatinine 0.81. Wound culture with presumptive MRSA. DIAGNOSTIC IMPRESSION AND PLAN: Patient with methicillin-resistant Staphylococcus aureus abdominal abscess with infected mesh that has been discontinued. The patient is currently on vancomycin and we will be continued. If not gram negative, discontinue the Zosyn. Continue supportive care. MTDD
[2016-09-26] MEDS ORDERED: VANCOMYCIN TROUGH DUE 1 EACH MISC MISCELLANE ONE (11:00)
[2016-09-26 11:34] LABS: CH 31.5; CHCM 35.3; HCT 38.5 % (39.0-53.0); HDW 2.59; HGB 13.4 gm/dL (13.0-17.5); MCH 31.1 pg (25.0-35.0); MCHC 34.7 g/dL (31.0-37.0); MCV 89.5 fL (80.0-100.0); Mean Platelet Volume 6.1; RDW 12.5 % (11.5-15.5); WBC 7.9 k/uL (3.8-10.6)
[2016-09-26 11:55] LABS: Anion Gap 10 mmol/L; Blood Urea Nitrogen 12 mg/dL (9-20); Calcium 9.1 mg/dL (8.4-10.2); Carbon Dioxide 27 mmol/L (22-30); Chloride 99 mmol/L (98-107); Glucose 117 mg/dL (74-99); Non-African American GFR(MDRD) >60 (>60 ml/min/1.73 sqM); Potassium 4.4 mmol/L (3.5-5.1); Sodium 136 mmol/L (137-145)
[2016-09-26 12:03] LABS: Glucose,Whole Blood 137 mg/dL (75-99)
[2016-09-26] MEDS: LACTATED RINGERS 1,000 ML IV SCH (13:26)
[2016-09-26] MEDS: SENNOSIDES-DOCUSATE SODIUM 1 EACH TAB PO SCH (13:30)
[2016-09-26] MEDS: HYDROcodone/APAP 7.5-325MG 1 EACH TAB PO PRN (13:34)
[2016-09-26 17:00] LABS: Glucose,Whole Blood 108 mg/dL (75-99)
[2016-09-26 21:09] LABS: Glucose,Whole Blood 114 mg/dL (75-99)
--- NOTE | 2016-09-26 21:43 | P.PN ---
Subjective Principal diagnosis: Abscess left groin with infected left inguinal hernia mesh This is a 51-year-old male. His primary care physician is Dr. Joe Pepe. He has a past medical history of diabetes mellitus type 2, hyperlipidemia, hypertension, chronic back pain, tobacco chewing. He denies ever being told that he had MRSA. He gives history that he had a left inguinal hernia repair done 15-20 years ago by a physician in [place]. One year later he had to have this redone also by another physician in [place]. He states he has had an open wound to the left groin for the past year that has been draining bloody liquid and soaks his underwear. He states that since Thursday there was a ball in the area and has started popping out and getting bigger and bigger and worsening with increasing pain. He saw Dr. Dave on September 19 and was placed on Bactrim. He states he tried to work on Thursday which she did that on Thursday the pain was so severe he was not able to work. He went to [facility] underwent a CAT scan of the abdomen that revealed an abscess on the anterior abdominal wall with extension down to the area of the left groin at the site of the prior hernia repair. Wound and blood cultures were obtained and sent to [place] lab. Patient was transferred to [facility] as a direct admission. He has been started on vancomycin and Zosyn has been added. Consult in place with infectious disease, Dr. Hernandez, and general surgeon, Dr. John Cheema 09/25 patient underwent on 1227 and incision and drainage of intra-abdominal wall abscess, incision and drainage of lateral abdominal wall abscess, incision and drainage of left groin abscess with removal of extruded mesh. Patient is doing better postoperative pain is controlled no nausea vomiting patient was requested to ambulate and use his incentive spirometry 09/26, no new complaints today except for incisional pain and ambulation pain. we're increasing to norco 7.5 and add celecoxib. continue on vanco, off zosyn.. patient remains afebrile. finalizing plans for discharge most likely this weekend. Objective - Vital Signs Vital signs: Vital Signs Temp 97 F L 09/26/16 15:00 Pulse 78 09/26/16 15:00 Resp 18 09/26/16 15:00 BP 118/70 09/26/16 15:00 Pulse Ox 94 L 09/26/16 15:00 Intake & Output 09/26/16 09/26/16 09/27/16 06:59 18:59 06:59 Intake Total 60 Output Total 665 Balance -605 Intake: Oral 60 Output: Urine 665 Other: Voiding Method Urinal # Voids 4 - Constitutional General appearance: Present: cooperative, no acute distress - EENT Eyes: Present: anicteric sclerae, PERRLA, dentition normal ENT: Present: hearing grossly normal, NA/AT, normal oropharynx - Neck Neck: Present: normal ROM - Integumentary Integumentary: Present: normal, normal turgor - Neurologic Neurologic: Present: CNII-XII intact - Labs CBC & Chem 7: 09/26/16 11:11 09/26/16 11:07 Labs: Abnormal Lab Results - Last 24 Hours (Table) 09/25/16 09/26/16 09/26/16 Range/Units 21:39 07:21 11:07 Hct (39.0-53.0) % Sodium 136 L (137-145) mmol/L Glucose 117 H (74-99) mg/dL POC Glucose (mg/dL) 126 H 108 H (75-99) mg/dL 09/26/16 09/26/16 09/26/16 Range/Units 11:11 12:01 16:58 Hct 38.5 L (39.0-53.0) % Sodium (137-145) mmol/L Glucose (74-99) mg/dL POC Glucose (mg/dL) 137 H 108 H (75-99) mg/dL 09/26/16 Range/Units 21:08 Hct (39.0-53.0) % Sodium (137-145) mmol/L Glucose (74-99) mg/dL POC Glucose (mg/dL) 114 H (75-99) mg/dL Microbiology - Last 24 Hours (Table) 09/24/16 15:06 Gram Stain - Final Abdomen Wound Culture - Final Methicillin resist S. aureus Laboratory Results - last 24 hr 09/25/16 09/26/16 09/26/16 21:39 07:21 11:07 WBC RBC Hgb Hct MCV MCH MCHC RDW Plt Count Sodium 136 L Potassium 4.4 Chloride 99 Carbon Dioxide 27 Anion Gap 10 BUN 12 Creatinine 0.80 Est GFR (MDRD) Af Amer >60 Est GFR (MDRD) Non-Af >60 Glucose 117 H POC Glucose (mg/dL) 126 H 108 H POC Glu Apparel Designer ID Tila Walsh Constance Calcium 9.1 Vancomycin Trough 09/26/16 09/26/16 09/26/16 11:11 11:11 12:01 WBC 7.9 RBC 4.30 Hgb 13.4 Hct 38.5 L MCV 89.5 MCH 31.1 MCHC 34.7 RDW 12.5 Plt Count 271 Sodium Potassium Chloride Carbon Dioxide Anion Gap BUN Creatinine Est GFR (MDRD) Af Amer Est GFR (MDRD) Non-Af Glucose POC Glucose (mg/dL) 137 H POC Glu Apparel Designer ID Stella King Vancomycin Trough 18.0 09/26/16 09/26/16 16:58 21:08 WBC RBC Hgb Hct MCV MCH MCHC RDW Plt Count Sodium Potassium Chloride Carbon Dioxide Anion Gap BUN Creatinine Est GFR (MDRD) Af Amer Est GFR (MDRD) Non-Af Glucose POC Glucose (mg/dL) 108 H 114 H POC Glu Apparel Designer ID Stella King Samantha Calcium Vancomycin Trough Assessment and Plan Plan: 1. Intra-abdominal wall abscess with presumptive Mrsa. extending to the posterior hernia repair, failed outpatient treatment with Bactrim. Patient has been started on vancomycin and Zosyn. Consult with Dr. John Cheema for debridement patient underwent on 09/24/2016, removal of the infected mesh and I& D on the intra-abdominal wall abscess, left groin abscess. Consult with Dr. Hernandez from infectious disease Continue an IV antibiotic vancomycin intraoperative cultures were obtained. Continue morphine for pain control and Zofran as needed for nausea. Incentive spirometry to reduce incidence of atelectasis and hospital-acquired pneumonia. opoid narcotics pain, celecoxib added. 2. Diabetes mellitus type 2. Patient has been maintained on metformin 500 mg daily. Continue Humalog scale before meals and at bedtime. 3. Hyperlipidemia. Continue Lipitor 10 mg daily. 4. Hypertension. Continue Hyzaar 50/12.5. one daily. 5. Chronic back pain. Patient has been on tramadol 50 mg twice daily. 6. Gastric intestinal prophylaxis. Continue Pepcid 20 mg twice daily. 7. DVT prophylaxis. Heparin 5000 units subcu 3 times daily. Patient will be admitted to the hospital for a minimum of 3 night stay. Discharge plan: Return home Time with Patient: Greater than 30
[2016-09-26] MEDS: HYDROcodone/APAP 5-325MG 1 EACH TAB PO PRN (23:05)
[2016-09-27] MEDS: HYDROcodone/APAP 5-325MG 1 EACH TAB PO PRN (04:02)
[2016-09-27] MEDS: SODIUM CHLORIDE 0.9% 1,000 ML IV SCH ×3 (04:06→23:38)
[2016-09-27] MEDS: VANCOMYCIN 1,750 MG in SODIUM CHLORIDE 0.9% 250 ML IVPB SCH ×3 (04:06→20:19)
[2016-09-27 07:45] LABS: Glucose,Whole Blood 122 mg/dL (75-99)
[2016-09-27] MEDS: INSULIN LISPRO (humaLOG) 300 UNIT/3 ML VIAL SQ SCH ×4 (07:51→21:25)
[2016-09-27] MEDS: metFORMIN 500 MG TAB PO SCH (07:52)
[2016-09-27] MEDS: LOSARTAN-HCTZ 50-12.5 MG 1 EACH TAB PO SCH (07:52)
[2016-09-27] MEDS: FAMOTIDINE 20 MG TAB PO SCH ×2 (07:52→20:19)
[2016-09-27] MEDS: HEPARIN SODIUM,PORCINE 5,000 UNIT/ML 1 ML VIAL SQ SCH ×3 (07:53→23:38)
[2016-09-27] MEDS: ASPIRIN 81 MG CHEW PO SCH (07:53)
[2016-09-27] MEDS: ATORVASTATIN 10 MG TAB PO SCH (07:53)
[2016-09-27] MEDS: MELOXICAM 7.5 MG TAB PO SCH (07:53)
[2016-09-27] MEDS: SENNOSIDES-DOCUSATE SODIUM 1 EACH TAB PO SCH (07:56)
[2016-09-27 08:35] LABS: CH 31.4; CHCM 35.2; HCT 38.9 % (39.0-53.0); HDW 2.66; HGB 13.4 gm/dL (13.0-17.5); MCH 30.8 pg (25.0-35.0); MCHC 34.4 g/dL (31.0-37.0); MCV 89.6 fL (80.0-100.0); Mean Platelet Volume 6.5; RBC 4.34 m/uL (4.30-5.90); RDW 12.4 % (11.5-15.5)
[2016-09-27 08:37] LABS: Anion Gap 9 mmol/L; Blood Urea Nitrogen 13 mg/dL (9-20); Calcium 9.1 mg/dL (8.4-10.2); Carbon Dioxide 26 mmol/L (22-30); Chloride 100 mmol/L (98-107); Glucose 102 mg/dL (74-99); Non-African American GFR(MDRD) >60 (>60 ml/min/1.73 sqM); Potassium 4.8 mmol/L (3.5-5.1); Sodium 135 mmol/L (137-145)
--- NOTE | 2016-09-27 09:33 | PN ---
DATE OF SERVICE: 09/26/2016 Reason for follow-up is left abdominal wall with worsening abscess with infected mesh. INTERVAL HISTORY: The patient is afebrile. Pain to the left lower abdomen is currently controlled. Denies any chest pain or shortness of breath or cough. No diarrhea. On examination, blood pressure is 118/72 with a pulse of 78, temperature 97.7. He is 94% on room air. General description is a middle-age male lying in bed in no distress. RESPIRATORY SYSTEM: Unlabored breathing. Clear to auscultation anteriorly. HEART: S1, S2. Regular rate and rhythm. ABDOMEN: Soft, no tenderness. The abdominal wound looks clean with no slough tissue. No surrounding erythema and induration. LABS: Hemoglobin is 13.4, white count 7.9 with a BUN of 12, creatinine 0.8. Wound culture with MRSA. DIAGNOSTIC IMPRESSION AND PLAN: Patient with methicillin-resistant Staphylococcus aureus abdominal wall abscess with underlying infected mesh that has been discontinued. Plan at this time is to continue with the Vanco, discontinue the Zosyn and when stable for discharge from primary and surgical site, the patient will be given Bactrim DS one twice a day for two weeks along with Aquacel Silver packing of the wound. Continue supportive care.
[2016-09-27] MEDS: MORPHINE SULFATE 4 MG/ML SYRINGE IV PRN ×2 (11:58→15:31)
[2016-09-27 12:10] LABS: Glucose,Whole Blood 107 mg/dL (75-99)
[2016-09-27] MEDS: LACTATED RINGERS 1,000 ML IV SCH (13:14)
[2016-09-27 17:21] LABS: Glucose,Whole Blood 91 mg/dL (75-99)
[2016-09-27 21:21] LABS: Glucose,Whole Blood 134 mg/dL (75-99)
[2016-09-28] MEDS: VANCOMYCIN 1,750 MG in SODIUM CHLORIDE 0.9% 250 ML IVPB SCH ×3 (03:34→21:11)
[2016-09-28 07:37] LABS: Glucose,Whole Blood 105 mg/dL (75-99)
[2016-09-28] MEDS: INSULIN LISPRO (humaLOG) 300 UNIT/3 ML VIAL SQ SCH ×4 (07:39→21:14)
[2016-09-28 07:42] VITALS: RESP 18
[2016-09-28] MEDS: HEPARIN SODIUM,PORCINE 5,000 UNIT/ML 1 ML VIAL SQ SCH ×3 (07:58→23:31)
[2016-09-28] MEDS: ATORVASTATIN 10 MG TAB PO SCH (07:58)
[2016-09-28] MEDS: metFORMIN 500 MG TAB PO SCH (07:59)
[2016-09-28] MEDS: MELOXICAM 7.5 MG TAB PO SCH (07:59)
[2016-09-28] MEDS: LOSARTAN-HCTZ 50-12.5 MG 1 EACH TAB PO SCH (07:59)
[2016-09-28] MEDS: ASPIRIN 81 MG CHEW PO SCH (07:59)
[2016-09-28] MEDS: SODIUM CHLORIDE 0.9% 1,000 ML IV SCH ×2 (07:59→21:11)
[2016-09-28] MEDS: FAMOTIDINE 20 MG TAB PO SCH ×2 (07:59→21:12)
[2016-09-28] MEDS: SENNOSIDES-DOCUSATE SODIUM 1 EACH TAB PO SCH (08:01)
--- NOTE | 2016-09-28 11:21 | PN ---
INTERVAL HISTORY: The patient appears to be hemodynamically stable. No major events reported overnight by nursing staff. Patient is currently denying chest pain, shortness breath, nausea; complaining of abdominal pain, dizziness, or lightheadedness. Wound was changed and packed by infectious disease and by surgery yesterday. The patient is waiting on his wound to be packed again and he is waiting on his medication to take just 20 minutes prior to that as it is very painful according to the patient. PHYSICAL EXAMINATION: VITAL SIGNS: Reviewed and stable. No fever reported over the last 24 hours. LUNGS: Clear to auscultation bilaterally. HEART: Normal S1, S2. ABDOMEN: Soft, nontender. Left lower abdomen incision seems to be draining a scant amount of serosanguineous, packed with gauze and a little bit of blood clots on the sides. LOWER EXTREMITIES: No edema. Alert and oriented x3. Imaging and labs reveal a CBC within normal limit. Chem-7 reveals mild hyponatremia at 135. Glucose is fluctuating between 91 and 122 ASSESSMENT AND PLAN: 1. MRSA abdominal wall abscess with underlying infected mesh that has been discontinued. Patient will be continued on vancomycin. We will continue with wound care. We would like to continue following up with surgery recommendation regarding discharge planning. 2. Intractable pain. Patient educated about pain management as discussed with the nursing staff at the bedside. 3. Mild hyponatremia. We will continue monitoring. The patient is asymptomatic. 4. Diabetes type 2, seems to be under good control. 5. Hyperlipidemia, will continue statin. 6. Hypertension, under control. Will continue Hyzaar. 7. Chronic back pain. Pain management as above. 8. DVT prophylaxis. Patient on ( ) 3 times daily.
[2016-09-28 12:17] LABS: Glucose,Whole Blood 85 mg/dL (75-99)
[2016-09-28] MEDS: MORPHINE SULFATE 4 MG/ML SYRINGE IV PRN (15:16)
[2016-09-28] MEDS: LACTATED RINGERS 1,000 ML IV SCH (15:17)
[2016-09-28 17:03] LABS: Glucose,Whole Blood 104 mg/dL (75-99)
[2016-09-28 21:25] LABS: Glucose,Whole Blood 110 mg/dL (75-99)
[2016-09-28] MEDS: HYDROcodone/APAP 5-325MG 1 EACH TAB PO PRN (23:36)
[2016-09-29] MEDS: VANCOMYCIN 1,750 MG in SODIUM CHLORIDE 0.9% 250 ML IVPB SCH ×2 (04:21→11:18)
[2016-09-29] MEDS: SODIUM CHLORIDE 0.9% 1,000 ML IV SCH (04:22)
[2016-09-29 06:44] LABS: Glucose,Whole Blood 109 mg/dL (75-99)
[2016-09-29] MEDS: HYDROcodone/APAP 5-325MG 1 EACH TAB PO PRN (07:01)
[2016-09-29 07:31] VITALS: BP 108/67; PULSE 64; TEMP 97.4
[2016-09-29] MEDS: INSULIN LISPRO (humaLOG) 300 UNIT/3 ML VIAL SQ SCH ×2 (07:52→12:30)
[2016-09-29] MEDS: ATORVASTATIN 10 MG TAB PO SCH (07:55)
[2016-09-29] MEDS: FAMOTIDINE 20 MG TAB PO SCH (07:55)
[2016-09-29] MEDS: MELOXICAM 7.5 MG TAB PO SCH (07:55)
[2016-09-29] MEDS: metFORMIN 500 MG TAB PO SCH (07:55)
[2016-09-29] MEDS: SENNOSIDES-DOCUSATE SODIUM 1 EACH TAB PO SCH (07:55)
[2016-09-29] MEDS: ASPIRIN 81 MG CHEW PO SCH (07:55)
[2016-09-29] MEDS: LOSARTAN-HCTZ 50-12.5 MG 1 EACH TAB PO SCH (07:56)
[2016-09-29] MEDS: HEPARIN SODIUM,PORCINE 5,000 UNIT/ML 1 ML VIAL SQ SCH (07:56)
--- NOTE | 2016-09-29 08:25 | PN ---
INTERVAL HISTORY: The patient continues to be hemodynamically stable overnight. No major events reported by nursing staff. Patient is denying chest pains or shortness of breath, nausea, vomiting, abdominal pain, dizziness, or lightheadedness. Abdominal pain became under better control after ( ) patient's chest pain. PHYSICAL EXAMINATION: VITAL SIGNS: 97.2, 68, 18, 117/69 and saturation is 98% on room air. LUNGS: Clear to auscultation bilaterally. HEART: S1, S2. ABDOMEN: Stable findings from prior day examination. IMAGING AND LABS: Blood cultures are still pending, negative for 4 days. Glucose is fluctuating between 85 and 134. ASSESSMENT AND PLAN: 1. Methicillin-resistant Staphylococcus aureus abdominal wall abscess with underlying infected mesh. That has been discontinued. Will continue packing. Continue wound care. Continue vancomycin at this point and follow-up with Infectious Disease recommendation regarding discharge planning along with General Surgery. 2. Intractable pain seems to be under better control. 3. Diabetes, fairly controlled during this hospital stay. Will aim for goal less than 180. 4. Mild hyponatremia. Will check on electrolyte panel in the morning. 5. Hyperlipidemia. Continue statin. 6. Hypertension, under fair control. 7. Deep venous thrombosis prophylaxis. Will continue heparin.
[2016-09-29] MEDS: HYDROcodone/APAP 7.5-325MG 1 EACH TAB PO PRN (10:56)
[2016-09-29] MEDS ORDERED: VANCOMYCIN TROUGH DUE 1 EACH MISC MISCELLANE ONE (11:00)
[2016-09-29 12:01] LABS: Glucose,Whole Blood 86 mg/dL (75-99)
[2016-09-29] MEDS: LACTATED RINGERS 1,000 ML IV SCH (12:33)
--- NOTE | 2016-10-01 16:55 | DS ---
DATE OF ADMISSION: 09/23/2016 DATE OF DISCHARGE: 09/29/2016 ADMISSION DIAGNOSES: 1. Intra-abdominal wall abscess, possibly extending to the posterior hernia repair or failed outpatient treatment with Bactrim. 2. Diabetes type 2. 3. Hyperlipidemia. 4. Hypertension. 5. Chronic back pain. 6. Gastroesophageal reflux disease. DISCHARGE DIAGNOSES: 1. Methicillin-resistant Staph aureus abdominal wall abscess with underlying infected mesh that has been discontinued. 2. Pathology report specimen showed infected mesh. CONSULTATION: 1. Dr. Hernandez from infectious disease. 2. ( ) from general surgery. PROCEDURE PERFORMED: Incision and drainage of intraabdominal wall abscess, incision and drainage of lateral abdominal wall abscess, incision and drainage of groin abscess area with removal of extruded mesh. HOSPITAL COURSE: This is a 51-year-old male who presented to the hospital with treatment failure on outpatient basis for abdominal wall infection. Patient was taken to the operating room and above procedure was done. The patient felt stable from the medical standpoint. Surgical evaluation revealed stable patient and recommendation was to continue with Aquacel silver packing for 2 weeks once daily and recommendations as well was to continue with doxycycline 100 mg p.o. twice daily for 2 weeks and follow-up with Dr. Hernandez in the office within 7 days. Patient advised to follow-up with his primary care physician regarding his general medical problem. Follow-up on the wound healing and continuation of antibiotics along with diabetes management. Patient was discharged in stable condition. Discharge process: 35 minutes.
== END 2016-09-29 13:20 | disposition home or self-care (01) | DRG 908 ==
LOC: EC 20:53 → SUPCPDRO 20:53 → 4MS4W 22:25
PROVIDERS: ADMIT Family Medicine; ATTEND Family Medicine
PROC: 0W9F0ZZ Drainage of Abdominal Wall, Open Approach (ICD-10-PCS; principal; 2016-09-24 11:20)
PROC: 0WPF0JZ Removal of Synthetic Substitute from Abdominal Wall, Open Approach (ICD-10-PCS; principal; 2016-09-24 11:20)
DX: T85.79XA Infection and inflammatory reaction due to other internal prosthetic devices, implants and grafts, initial encounter (principal); T81.4XXA Infection following a procedure, initial encounter; E87.1 Hypo-osmolality and hyponatremia; I10 Essential (primary) hypertension; L02.211 Cutaneous abscess of abdominal wall; E11.9 Type 2 diabetes mellitus without complications; L02.214 Cutaneous abscess of groin; L03.311 Cellulitis of abdominal wall; E78.5 Hyperlipidemia, unspecified; G89.29 Other chronic pain; B95.62 Methicillin resistant Staphylococcus aureus infection as the cause of diseases classified elsewhere; K21.9 Gastro-esophageal reflux disease without esophagitis; Y83.1 Surgical operation with implant of artificial internal device as the cause of abnormal reaction of the patient, or of later complication, without mention of misadventure at the time of the procedure; M54.9 Dorsalgia, unspecified; Z72.0 Tobacco use; Z79.82 Long term (current) use of aspirin; Z79.84 Long term (current) use of oral hypoglycemic drugs; Z79.899 Other long term (current) drug therapy
CPT/HCPCS: 36415; 80048; 80053; 80202; 83036; 85025; 85027; 87040; 87070; 87075; 87077; 87186; 87205; 88300; 88304; 99285